=== PATIENT | male | born 1975 | race African-American/Black ===

== ENCOUNTER 2018-06-11 22:58 | Inpatient (IN) | payer OTHER ==
[2018-06-12 00:03] LABS: Hemoglobin 11.3 g/dL (14.0-18.0); Mean Corpuscular Hemoglobin 23.9 pg (27.0-31.0); Mean Corpuscular Volume 77.2 fL (78.0-98.0); RBC Distribution Width 18.3 % (11.5-14.5); Red Blood Cell (RBC) Count 4.74 mill/uL (4.70-6.10); White Blood Cell (WBC) Count 11.6 thou/uL (4.8-10.8)
[2018-06-12 00:18] LABS: #Lymphocytes 1.5 thou/uL (1.20-3.40); #Monocytes 0.7 thou/uL (0.11-0.59); #Neutrophils 9.3 thou/uL (1.40-6.50); %Basophils 0.1 % (0.0-1.0); %Eosinophils 0.4 % (0.0-10.0); %Monocytes 5.8 % (0.0-10.0); %Neutrophils 80.7 % (42.0-75.0); MDiff Complete? YES; Mean Platelet Volume 8.6 fL (7.4-10.4); Platelet Count 70 thou/uL (130-400); Platelet Morphology Comment Appears Decreased; Reflex for Review?? YES; Target Cells MARKED = >16 cells (100X) (0-1/hpf)
[2018-06-12] MEDS ORDERED: Acetaminophen 325 MG TAB PO PRN (01:49)
[2018-06-12] MEDS ORDERED: Ondansetron ODT 4 MG TAB PO PRN (01:49)
[2018-06-12 01:54] VITALS: BMI 29.2
[2018-06-12] MEDS: Dextrose 5 % And 0.9 % NaCl 1,000 ML IV SCH ×2 (02:06→10:54)
--- NOTE | 2018-06-12 05:34 | HP ---
PRIMARY CARE DOCTOR: The patient has no PCP. CODE STATUS: Full code. TIME OF EVALUATION: 01:10 a.m. CHIEF COMPLAINT: Black stools and coffee-ground emesis. HISTORY OF PRESENT ILLNESS: This is a 43-year-old male patient, past medical history of cirrhosis of the liver. He is an inmate, who came to the hospital from [facility] for evaluation of possible GI bleed and the patient reported that since Tuesday he has been noticing black stools and also had some coffee-ground emesis associated with some abdominal pain. No clear triggers, no alleviating factors. The patient reported that he has history of cirrhosis as he was very young, but he does not recall why he had this problem. REVIEW OF SYSTEMS: CONSTITUTIONAL: No fever or chills. The patient reported generalized weakness. RESPIRATORY: No cough, sputum production, or shortness of breath. CARDIOVASCULAR: No chest pain or palpitation. GASTROINTESTINAL: The patient has been nauseous and vomiting of coffee-ground emesis, black stools, abdominal cramps. FISHER LINE: No dizziness, headache, or feeling lightheaded. GENITOURINARY: No burning on urination. EXTREMITIES: No leg swelling. All other systems were reviewed and negative, except for the findings mentioned above. PAST MEDICAL HISTORY: Positive for hypertension, cirrhosis of the liver, cellulitis of the right leg. PAST SURGICAL HISTORY: Right ankle repair, jaw repair. PSYCH HISTORY: No previous psych history. SOCIAL HISTORY: No alcohol, no drugs, no smoking history. KNOWN ALLERGIES: No known drug allergies reported. MEDICATIONS: 1. Lasix. 2. Lisinopril. 3. Spironolactone. PHYSICAL EXAMINATION: VITAL SIGNS: On presentation, blood pressure 141/67, heart rate 100, respiratory rate was 16, temperature 98.5, oxygen saturation was 99 on room air. GENERAL APPEARANCE: The patient is alert, oriented, not in acute distress. HEENT: Eyes; normal conjunctivae. Moist oral mucosa. Anicteric. No JVD. RESPIRATORY: Bilateral air entry. No rales. No wheezes. Symmetric expansion. CARDIOVASCULAR: Normal rate, regular rhythm. No murmurs or gallops. No edema. ABDOMEN: Soft. Normal bowel sounds. MUSCULOSKELETAL: Baseline range of motion and strength. No tenderness. SKIN: Warm, intact. No pallor. No rash. No redness. Peripheral pulse are present. Capillary refill seems to be intact. NEURO: No evidence of any new focal weakness. Baseline speech. Cranial nerves seems to be intact. PSYCH: The patient is in good mood. No anxiety. Optimal judgment. LABORATORY DATA: Prior to the transfer, records were reviewed. The patient has a sodium of 127, potassium of 5.9, chloride 98, carbon dioxide 23, anion gap 11.9, glucose 145, BUN 34, creatinine 0.9, GFR 127. Albumin 2.4. LFTs mildly elevated. White count 8.2, hemoglobin 11.4, platelet count 67. IMAGING STUDIES: CT abdomen show changes of hepatic cirrhosis, intrahepatic biliary ductal dilatation is related to the left hepatic lobe, correlation with MRCP recommended. A 2.2 cm complex cystic mass involving the right hepatic lobe, infectious and neoplastic etiologies are possible. Mild free intraperitoneal fluid, nonspecific finding in the mediastinum with involvement in the pancreatic body. MRCP may also be useful in assessing this finding. ASSESSMENT AND PLAN: The patient will be placed in the hospital with following medical problems: 1. Possible gastrointestinal bleed. The patient has some black stools and some coffee-ground material in the vomitus. The patient has a history of cirrhosis. We will monitor hemoglobin, we will hydrate and transfuse as needed. We will consult GI for any further recommendation. 2. Possible pancreatic mass. The patient will need MRCP. Also consult GI for any further need for evaluations. 3. History of cirrhosis of the liver, could be related to possible GI bleeding. The patient also has thrombocytopenia, likely secondary to cirrhosis. GI has been consulted. We will follow recommendations. 4. Uncontrolled hypertension. The patient presented with systolic blood pressure more than 140. We will reconcile home medications, we will adjust medications as needed. We would not treat aggressively since the patient has possible bleeding. 5. Deep venous thrombosis prophylaxis. Job ID: [id number]
[2018-06-12 06:35] LABS: Hemoglobin 10.2 g/dL (14.0-18.0)
[2018-06-12 06:52] LABS: Anion Gap 11 mmol/L (10-20); BUN (Urea Nitrogen) 30 mg/dL (8.9-20.6); Calc. Creatinine Clearance 147 mL/min (70-130); Calcium 8.4 mg/dL (7.8-10.44); Carbon Dioxide 21 mmol/L (22-29); Chloride 103 mmol/L (98-107); Estimated GFR-MDRD Greater than 90; Glucose 119 mg/dL (70-105); Potassium 4.9 mmol/L (3.5-5.1); Sodium 130 mmol/L (136-145)
[2018-06-12] MEDS ORDERED: Senokot S 8.6-50 MG TAB PO PRN (10:00)
[2018-06-12] MEDS ORDERED: Bisacodyl 10 MG SUPP PR PRN (10:00)
[2018-06-12] MEDS ORDERED: Pantoprazole 40 MG VIAL IVP SCH (10:15)
[2018-06-12 12:14] LABS: Hemoglobin 10.1 g/dL (14.0-18.0)
--- NOTE | 2018-06-12 12:51 | MRI ---
MRI ABDOMEN WITH AND WITHOUT CONTRAST: HISTORY: Pancreatic mass. COMPARISON: None. TECHNIQUE: Multiplanar, multisequence MRI performed prior to and after the intravenous administration of contras t. FINDINGS: The liver is severely cirrhotic. There is severe background cirrhosis with extensive regenerative no dules. No focal area of mass-like arterial hyperenhancement to suggest malignancy. There is moderat e unilateral left-sided intrahepatic biliary dilatation. The examination was not performed as an MRC P, although the right hepatic duct and the common bile duct do not appear to be dilated. The left-si ded intrahepatic biliary system is normal to the level of the left portal vein. Pancreatic duct is not dilated. There are 2 T2 hyperintense foci without enhancement in the pancreas , 1 of the pancreatic head and 2 in the uncinate process for a total of 3. In the head it measures a pproximately 5 mm. In the uncinate process, they measure 4 mm and 4 mm. There is beading of the lef t side intrahepatic biliary system. There is also cystic dilatation of hepatic segment 4A biliary sy stem. There is extensive submucosal edema of the gallbladder. The wall thickness measures over 8 mm. Ther e is enhancing mass along the craniad gallbladder wall best seen on the coronal postcontrast imaging #31. This measures up to 6 mm in size. The spleen is enlarged measuring 14 cm with a nonenhancing p eripheral cleft in the mid body. Small periaortic left-sided lymph nodes. No hydronephrosis. No ab normal enhancing renal mass. Small right-sided pericardial lymph node. The splenic vein is patent as well as the portal vein. Th ere is no abnormal hyper or hypoenhancing solid mass of the pancreas. IMPRESSION: 1. Total of 3 pancreatic cysts measuring than 5 mm. No solid enhancing mass. Per ACR white paper g uidelines, followup pancreatic protocol MRI in 1 year is recommended. 2. Severe hepatic cirrhosis with extensive fibrosis and numerous regenerative nodules. No evidence for a hepatocellular carcinoma. 3. Focal dilatation of the left intrahepatic biliary system at the level of the left portal vein and peripherally. There is cystic dilatation of hepatic segment 4A biliary system. The right hepatic du ct, common hepatic duct, and common bile duct are not dilated. No abnormal mass such as a cholangioc arcinoma is appreciated. This could be sequelae of a stricture. Attention on followup imaging is re commended. 4. A 6 mm enhancing mass along the craniad wall of the gallbladder measuring 6 mm. This may be a ga llbladder polyp and close attenuation on followup imaging is recommended. 5. Extensive submucosal edema of the gallbladder, likely sequelae of underlying hepatic congestion. No abnormal hyperenhancement to suggest acute cholecystitis. 6. No adenopathy. 7. Splenomegaly with a peripheral wedge-shaped area of hypoenhancement, likely an old scar from infa rction. 8. T2 markedly hyperintense focus within the body of the left adrenal gland measuring 8 mm without a ny enhancement suggesting adrenal cyst. 9. Given the severe background hepatic cirrhosis, the patient should be placed in an HCC screening p cinda. POS: [facility]
--- NOTE | 2018-06-12 13:56 | PDOC.PN ---
- Subjective Encounter Start Date: 06/12/18 Encounter Start Time: 10:00 Patient seen and examined for UGI bleeding. No new GI bleeding. No abd pain. Had one episode of dark stool last night. No new complaints. No overnight events - Objective Resuscitation Status - Order Detail: 06/12/18 01:49 Resuscitation Status Routine Resuscitation Status: FULL: Full Resuscitation MAR Reviewed: Yes Vital Signs & Weight: Vital Signs (12 hours) Temp Pulse Resp BP Pulse Ox 06/12/18 10:51 98 F 83 16 159/94 H 100 06/12/18 08:08 97.9 F 110 H 18 116/68 100 06/12/18 07:55 97.9 F 116/68 100 06/12/18 04:20 98.1 F 95 20 123/74 100 Weight Weight 198 lb I&O: 06/11/18 06/12/18 06/13/18 06:59 06:59 06:59 Intake Total 600 Output Total 450 Balance 150 Result Diagrams: 06/12/18 12:00 06/12/18 06:08 Phys Exam - Physical Examination Constitutional: NAD Respiratory: no wheezing, no rhonchi Cardiovascular: RRR, no significant murmur, no rub no heaves Gastrointestinal: soft, non-tender, no distention, positive bowel sounds Musculoskeletal: no edema Neurological: non-focal, normal sensation, moves all 4 limbs Psychiatric: normal affect, A&O x 3 Dx/Plan (1) UGIB (upper gastrointestinal bleed) Code(s): K92.2 - GASTROINTESTINAL HEMORRHAGE, UNSPECIFIED Status: Acute (2) Acute blood loss anemia Code(s): D62 - ACUTE POSTHEMORRHAGIC ANEMIA Status: Acute (3) Abnormal CT of the abdomen Code(s): R93.5 - ABN FINDINGS ON DX IMAGING OF ABD REGIONS, INC RETROPERITON Status: Acute (4) Hyperkalemia Code(s): E87.5 - HYPERKALEMIA Status: Acute (5) Cirrhosis of liver Code(s): K74.60 - UNSPECIFIED CIRRHOSIS OF LIVER Status: Chronic Comment: with coagulopathy and thrombocytopenia (6) HTN (hypertension) Code(s): I10 - ESSENTIAL (PRIMARY) HYPERTENSION Status: Chronic - Plan cont current plan of care, out of bed/ambulate, DVT proph w/SCDs Monitor HH -: NPO for possible EGD -: MRI results pending -: AM labs -: Add PPI, Cont current meds as below Review of Systems - Review of Systems Respiratory: negative: Cough, Dry, Shortness of Breath, Hemoptysis, SOB with Excertion, Pleuritic Pain, Sputum, Wheezing Cardiovascular: negative: chest pain, palpitations, orthopnea, paroxysmal nocturnal dyspnea, edema, light headedness, other Gastrointestinal: Melena (1 episode). negative: Nausea, Vomiting, Abdominal Pain, Diarrhea, Constipation, Hematochezia, Other - Medications/Allergies Allergies/Adverse Reactions: Allergies Allergy/AdvReac Type Severity Reaction Status Date / Time No Known Drug Allergies Allergy Verified 06/12/18 07:31 Medications: Current Medications Acetaminophen (Tylenol) 650 mg PO Q4H PRN PRN Reason: Headache/Fever/Mild Pain (1-3) Bisacodyl (Dulcolax) 10 mg ND DAILYPRN PRN PRN Reason: Constipation Ondansetron HCl (Zofran Odt) 4 mg PO Q6H PRN PRN Reason: Nausea/Vomiting Pantoprazole Sodium (Protonix) 40 mg IVP Q12HR DAVID Senna/Docusate Sodium (Senokot S) 2 tab PO BID PRN PRN Reason: Constipation Sodium Chloride (Flush - Normal Saline) 10 ml IVF PRN PRN PRN Reason: Saline Flush
[2018-06-12] MEDS ORDERED: Labetalol HCl 100 MG/20 ML VIAL SLOW IVP PRN (14:44)
[2018-06-12] MEDS: Propranolol 10 MG TAB PO SCH ×2 (14:49→21:22)
[2018-06-12 18:11] LABS: Hemoglobin 9.6 g/dL (14.0-18.0)
[2018-06-12] MEDS: Pantoprazole 40 MG VIAL IVP SCH (21:21)
--- NOTE | 2018-06-13 00:08 | CON ---
DATE OF CONSULTATION: 06/12/2018 REQUESTING PHYSICIAN: Dr. Byrd. REASON FOR CONSULTATION: GI bleeding. HISTORY OF PRESENT ILLNESS: Darshan Haines is a 43-year-old gentleman, an inmate at [facility], who was transferred here from [facility] last night for GI bleeding. Mr. Haines interestingly tells me that he was diagnosed with cirrhosis at the early age of 17. He said he had a liver biopsy at that time, but that he never really learned what the cause of the cirrhosis was and he never really had any liver followup since that time. Now, over the past few months while incarcerated, he has actually been undergoing extensive evaluation at [facility] at [facility] for his liver disease. He states he did not have another liver biopsy, but he has had extensive imaging and lab work and that he is still not exactly clear as to what has caused his cirrhosis, but that they said everything is stable. He is on some diuretics as an outpatient. He says he has not ever had a prior EGD, but this was planned for some point in the future. He never had any history of overt ascites or encephalopathy or gastrointestinal bleeding. Two days ago in the evening, he had a bowel movement, noticed that it was very dark black. This was just a single episode of what appeared to be melena. Later that evening, he had an episode of emesis. He says this was mostly recently ingested food, but then there was some reddish brown material which was concerning for blood. Then, this continued yesterday, where he had three episodes total of coffee-ground emesis. He started to feel dizzy and lightheaded and that prompted his presentation. At [facility], labs demonstrated hemoglobin 11.4 and total bilirubin 5.3 with some mild elevation in transaminases and INR 1.6. He remained hemodynamically stable throughout. He was transferred here for further evaluation. He was put on IV Protonix and made n.p.o. today. Today, he is feeling a lot better. He has not had any bowel movements today. He has not had any nausea or vomiting today. There is no abdominal discomfort like he was having the past couple of days. He really feels back to normal. He has remained hemodynamically stable. Hemoglobin did decline down to 10.1 this morning. REVIEW OF SYSTEMS: Full review of systems including constitutional, head, eyes, ears, nose, throat, GI, , cardiovascular, respiratory, musculoskeletal, neurologic systems is negative except as noted in the HPI. PAST MEDICAL HISTORY: 1. Hypertension. 2. Cellulitis. 3. Cirrhosis, unknown etiology, diagnosed at age 17. SOCIAL HISTORY: The patient is currently an inmate. Alcohol use was just on a social basis prior to his incarceration. Denies drug use. FAMILY HISTORY: Noncontributory. ALLERGIES: NO KNOWN DRUG ALLERGIES. OUTPATIENT MEDICATIONS: Lasix, spironolactone, lisinopril. PHYSICAL EXAMINATION: VITAL SIGNS: Temperature 98.0, pulse 83, blood pressure 159/94, 100% oxygen saturation on room air. GENERAL: Well-appearing 43-year-old gentleman, sitting up in bed comfortably, in no distress. SKIN: No jaundice. No rashes were palpable. He does have multiple tattoos. HEENT: Eyes; he does have some scleral icterus. Extraocular movements intact. ENT, mucous membranes moist. No oral lesions. LYMPH: No submandibular supraclavicular lymphadenopathy. THYROID: Nontender to palpation. HEART: Regular rate and rhythm. LUNGS: Clear to auscultation bilaterally. ABDOMEN: Nondistended. Bowel sounds present. Soft, nontender to palpation throughout. EXTREMITIES: No peripheral edema. VESSELS: Radial pulses 2+ bilaterally. NEUROLOGIC: Cranial nerves 2 through 12 intact bilaterally. No focal deficits. No asterixis. LABORATORY STUDIES: Hemoglobin initially 11.3, now down to 10.1, MCV is 77, WBC 11.6, platelets 70. BUN 30, creatinine 0.84, sodium 130, potassium 4.9, INR 1.6, total bilirubin 5.3, alkaline phosphatase 127, AST 79, ALT 136, albumin 2.4. IMAGING STUDIES: CT of the abdomen and pelvis performed in [facility] demonstrated cirrhotic liver configuration, intrahepatic biliary dilation, isolated to the left hepatic lobe with a 3.2 cm complex cystic mass in the left hepatic lobe with no apparent ductal dilation on the right side or involving the common duct. MRI of the abdomen performed here shows again severe hepatic cirrhosis with fibrosis and numerous regenerative nodules, but no evidence for hepatocellular carcinoma. There is focal dilation of the left intrahepatic biliary system and cystic dilation of hepatic segment 4A, but the right hepatic duct, common hepatic duct, and common bile duct are not dilated and there is no abnormal mass to suggest cholangiocarcinoma. There is a 6 mm probable gallbladder polyp, but no abnormal hyperenhancement to suggest cholecystitis. There is splenomegaly and there are three small pancreatic cysts, all measuring 5 mm or less. No solid enhancing mass. ASSESSMENT AND PLAN: 1. Hematemesis, resolved today. 2. Acute blood loss anemia. Clinically, the patient is stable with no further overt evidence of bleeding today. I do note he did have some decline in hemoglobin down to 10.1 and also elevated BUN to creatinine ratio with BUN 30 and creatinine 0.84. Clinically, this does not appear to represent variceal bleeding, but certainly further investigation is warranted, particularly with his history of long-standing cirrhosis. I agree with the IV PPI for now. We will plan on diagnostic upper endoscopy tomorrow. Depending on findings, the patient may benefit from acid suppression or a nonselective beta anderson going forward. 3. Abnormal CT of the liver with left biliary dilation. 4. Multiple pancreatic cysts, likely benign. The etiology of his cirrhosis is not really clear. However, it certainly appears otherwise well compensated aside from the thrombocytopenia and the bilirubin elevation of 5.3. I am not sure how chronic that is. At any rate, he is following at [facility] with butcher or smallgoods maker there, and reports he has had extensive recent evaluation. I do not really see the need to repeat a lot of that evaluation here acutely. Certainly, he will need to follow up closely with his butcher or smallgoods maker at [facility]. Given the findings of multiple benign-appearing pancreatic cysts as well as left-sided biliary dilation, perhaps endoscopic ultrasound could be considered when he follows up on an outpatient basis. Job ID: [id number]
[2018-06-13 00:44] LABS: Hemoglobin 8.6 g/dL (14.0-18.0)
[2018-06-13 06:56] LABS: ALT (SGPT) 61 U/L (8-55); AST (SGOT) 96 U/L (5-34); Alkaline Phosphatase 105 U/L (40-150); Anion Gap 8 mmol/L (10-20); BUN (Urea Nitrogen) 23 mg/dL (8.9-20.6); Bilirubin, Total 4.3 mg/dL (0.2-1.2); Calc. Creatinine Clearance 156 mL/min (70-130); Calcium 7.9 mg/dL (7.8-10.44); Carbon Dioxide 23 mmol/L (22-29); Chloride 104 mmol/L (98-107); Estimated GFR-MDRD Greater than 90; Globulin 3.9 g/dL (2.4-3.5); Glucose 86 mg/dL (70-105); Magnesium 1.5 mg/dL (1.6-2.6); Potassium 4.8 mmol/L (3.5-5.1); Protein, Total 5.9 g/dL (6.0-8.3); Sodium 130 mmol/L (136-145)
[2018-06-13] MEDS ORDERED: Magnesium 2 GM/50 ML 2 GM in Premix Bag 1 BAG IVPB SCH (07:45)
[2018-06-13] MEDS: Pantoprazole 40 MG VIAL IVP SCH ×2 (08:12→20:39)
[2018-06-13] MEDS: Propranolol 10 MG TAB PO SCH ×3 (08:12→20:38)
[2018-06-13 08:37] LABS: Band 1 % (5-11); Hemoglobin 8.9 g/dL (14.0-18.0); Hypochromia SLIGHT = 6-15 cells (100X) (0-5/hpf); Lymphocytes 22 % (21-51); MDiff Complete? YES; Mean Corpuscular Hemoglobin 25.2 pg (27.0-31.0); Mean Corpuscular Volume 81.3 fL (78.0-98.0); Mean Platelet Volume 7.5 fL (7.4-10.4); Monocytes 7 % (0-10); Myelocyte 1 % (0-0); Neutrophil 69 % (42-75); Ovalocytes SLIGHT = 2-5 cells (100X) (0-1/hpf); Platelet Count 53 thou/uL (130-400); Platelet Morphology Comment Appears Decreased; RBC Distribution Width 17.6 % (11.5-14.5); Red Blood Cell (RBC) Count 3.52 mill/uL (4.70-6.10); Target Cells MODERATE= 6-15 cells (100X) (0-1/hpf); White Blood Cell (WBC) Count 8.5 thou/uL (4.8-10.8)
[2018-06-13] MEDS ORDERED: Ondansetron HCl/PF 4 MG/2 ML Vial IVP PRN (11:42)
[2018-06-13] MEDS ORDERED: Promethazine HCl 25 MG/ML VIAL IM PRN (11:42)
[2018-06-13] MEDS ORDERED: Promethazine HCl 25 MG/ML VIAL SLOW IVP PRN (11:42)
--- NOTE | 2018-06-13 16:04 | OP ---
DATE OF PROCEDURE: 06/13/2018 PROCEDURES PERFORMED: Esophagogastroduodenoscopy with banding of esophageal varices. PREOPERATIVE DIAGNOSES: Hematemesis and anemia of acute blood loss. DESCRIPTION OF PROCEDURE: Informed consent was obtained from the patient. He was sedated with total intravenous anesthesia. The endoscope was advanced easily to the second portion of the duodenum and retroflexion was performed in the stomach. The esophagus had 3 columns of varices. One large grade 3 varix with red signs. This was banded in the distal esophagus. There were 2 columns small grade 1 varices, that flattened completely after banding and did not appear otherwise bandable with this procedure. He did have severe portal hypertensive gastropathy throughout the stomach. No obvious gastric varices. The pylorus and first and second portions of the duodenum were normal. IMPRESSION: 1. One column large grade 3 varix with red signs banded x1. 2. Two columns small grade 1 varices that flattened completely and were left alone. 3. Severe portal hypertensive gastropathy. RECOMMENDATIONS: 1. Advance diet. 2. Repeat EGD in 2 to 4 weeks for completion of banding. He follows with Gastroenterology/Hepatology in [place]. Job ID: [id number]
[2018-06-13] MEDS ORDERED: Lidocaine 1% PF 5 ML VIAL ONE (16:21)
[2018-06-13] MEDS ORDERED: PROPOFOL 200 MG/20 ML VIAL ONE (16:21)
--- NOTE | 2018-06-13 19:09 | PDOC.PN ---
- Subjective Encounter Start Date: 06/13/18 Encounter Start Time: 12:30 Patient seen and examined for UGI bleed. No new melena or hematemesis. No new complaints. No overnight events - Objective Resuscitation Status - Order Detail: 06/12/18 01:49 Resuscitation Status Routine Resuscitation Status: FULL: Full Resuscitation MAR Reviewed: Yes Vital Signs & Weight: Vital Signs (12 hours) Temp Pulse Resp BP BP BP Pulse Ox 06/13/18 15:50 98.2 F 71 16 115/70 100 06/13/18 12:20 98.0 F 68 16 119/75 99 06/13/18 08:00 97.8 F 62 18 106/66 100 Weight Weight 198 lb I&O: 06/12/18 06/13/18 06/14/18 06:59 06:59 06:59 Intake Total 600 3020 800 Output Total 450 1100 400 Balance 150 1920 400 Result Diagrams: 06/13/18 05:45 06/13/18 05:45 Phys Exam - Physical Examination Constitutional: NAD Respiratory: no wheezing, no rhonchi Cardiovascular: RRR, no rub Gastrointestinal: soft, non-tender, positive bowel sounds Musculoskeletal: no edema Neurological: moves all 4 limbs Dx/Plan (1) UGIB (upper gastrointestinal bleed) Code(s): K92.2 - GASTROINTESTINAL HEMORRHAGE, UNSPECIFIED Status: Acute (2) Acute blood loss anemia Code(s): D62 - ACUTE POSTHEMORRHAGIC ANEMIA Status: Acute (3) Hyperkalemia Code(s): E87.5 - HYPERKALEMIA Status: Acute (4) Cirrhosis of liver Code(s): K74.60 - UNSPECIFIED CIRRHOSIS OF LIVER Status: Chronic Comment: with coagulopathy, hypoalbuminemia and thrombocytopenia (5) HTN (hypertension) Code(s): I10 - ESSENTIAL (PRIMARY) HYPERTENSION Status: Chronic (6) Hypomagnesemia Code(s): E83.42 - HYPOMAGNESEMIA Status: Acute - Plan cont current plan of care, DVT proph w/SCDs Replace Potassium -: AM labs -: s/p Variceal banding -: Cont Inderal -: Resume Lasix and Aldactone at dc Review of Systems - Review of Systems Respiratory: negative: Cough, Dry, Shortness of Breath, Hemoptysis, SOB with Excertion, Pleuritic Pain, Sputum, Wheezing Cardiovascular: negative: chest pain, palpitations, orthopnea, paroxysmal nocturnal dyspnea, edema, light headedness, other - Medications/Allergies Allergies/Adverse Reactions: Allergies Allergy/AdvReac Type Severity Reaction Status Date / Time No Known Drug Allergies Allergy Verified 06/12/18 07:31 Medications: Current Medications Acetaminophen (Tylenol) 650 mg PO Q4H PRN PRN Reason: Headache/Fever/Mild Pain (1-3) Bisacodyl (Dulcolax) 10 mg MN DAILYPRN PRN PRN Reason: Constipation Labetalol HCl (Normodyne) 10 mg SLOW IVP Q4H PRN PRN Reason: Systolic BP > 180 Ondansetron HCl (Zofran Odt) 4 mg PO Q6H PRN PRN Reason: Nausea/Vomiting Pantoprazole Sodium (Protonix) 40 mg IVP Q12HR [facility] Last Admin: 06/13/18 08:12 Dose: 40 mg Propranolol HCl (Inderal) 10 mg PO TID [facility] Last Admin: 06/13/18 14:31 Dose: 10 mg Senna/Docusate Sodium (Senokot S) 2 tab PO BID PRN PRN Reason: Constipation Sodium Chloride (Flush - Normal Saline) 10 ml IVF PRN PRN PRN Reason: Saline Flush
[2018-06-14] MEDS: Propranolol 10 MG TAB PO SCH (08:04)
[2018-06-14] MEDS: Pantoprazole 40 MG VIAL IVP SCH (08:04)
[2018-06-14 08:21] LABS: Hemoglobin 8.6 g/dL (14.0-18.0); Mean Corpuscular HGB CONC 31.2 g/dL (32.0-36.0); Mean Corpuscular Hemoglobin 25.2 pg (27.0-31.0); Mean Corpuscular Volume 80.6 fL (78.0-98.0); RBC Distribution Width 17.7 % (11.5-14.5); Red Blood Cell (RBC) Count 3.42 mill/uL (4.70-6.10); White Blood Cell (WBC) Count 6.2 thou/uL (4.8-10.8)
[2018-06-14 08:36] LABS: Anion Gap 10 mmol/L (10-20); BUN (Urea Nitrogen) 17 mg/dL (8.9-20.6); Calc. Creatinine Clearance 154 mL/min (70-130); Calcium 7.8 mg/dL (7.8-10.44); Carbon Dioxide 23 mmol/L (22-29); Chloride 105 mmol/L (98-107); Estimated GFR-MDRD Greater than 90; Glucose 94 mg/dL (70-105); Magnesium 1.6 mg/dL (1.6-2.6); Potassium 4.6 mmol/L (3.5-5.1); Sodium 133 mmol/L (136-145)
[2018-06-14 08:43] LABS: #Basophils 0.1 thou/uL (0.0-0.2); #Eosinphils 0.2 thou/uL (0.0-0.7); #Lymphocytes 1.8 thou/uL (1.20-3.40); #Monocytes 0.7 thou/uL (0.11-0.59); #Neutrophils 3.4 thou/uL (1.40-6.50); %Basophils 1.3 % (0.0-1.0); %Lymphocytes 29.3 % (21.0-51.0); %Monocytes 11.2 % (0.0-10.0); %Neutrophils 54.2 % (42.0-75.0); Mean Platelet Volume 12.4 fL (7.4-10.4); Platelet Count 50 thou/uL (130-400)
[2018-06-14 08:44] LABS: Hypochromia SLIGHT = 6-15 cells (100X) (0-5/hpf); MDiff Complete? YES; Platelet Morphology Comment Appears Decreased; Polychromasia MODERATE = 3-4 cells (100X) (0-2/hpf); Schistocytes SLIGHT = 2-5 cells (100X) (0-1/hpf); Target Cells MARKED = >16 cells (100X) (0-1/hpf)
[2018-06-14 12:34] VITALS: BP 106/66; TEMP 97.8
--- NOTE | 2018-06-14 19:35 | DIS ---
DATE OF ADMISSION: 06/11/2018 DATE OF DISCHARGE: 06/14/2018 DISCHARGE DISPOSITION: The patient is an inmate. ALLERGIES: NO KNOWN DRUG ALLERGIES. DISCHARGE MEDICATIONS: 1. Lasix 40 mg b.i.d. 2. Aldactone 25 mg b.i.d. 3. Propranolol 10 mg three times a day. 4. Multivitamin one tablet daily. 5. Protonix 40 mg daily. The patient was seen and examined on the day of discharge. Denies any new complaints. No chest pain, shortness of breath, or palpitations reported. FOLLOWUP: Follow up with primary gastroenterology/dough cutter at [facility]. DIAGNOSTIC TESTS: The patient underwent most of the testing at [facility]. He underwent MRCP at this facility that showed total of three pancreatic cyst measuring approximately 5 mm without any solid enhancing mass. There was severe hepatic cirrhosis with extensive fibrosis without any evidence of hepatocellular carcinoma. There was focal dilatation of the left intrahepatic biliary system at the level of the left portal vein and peripherally. There was also cystic dilatation of the hepatic segment 4A biliary system. There was splenomegaly. BRIEF HOSPITAL COURSE: The patient is a 43-year-old male with cirrhosis, presented to the hospital with black stool and coffee-grounds emesis. He initially presented to [facility] and was transferred to this facility. CT scan of the abdomen at [facility] showed intrahepatic biliary ductal dilatation with complex cystic mass. MRCP was recommended, which was done at this facility as discussed above. SIGNIFICANT LABS: Potassium 5.9 with sodium of 127 at [facility], BUN 34, creatinine 0.9, albumin 2.4, hemoglobin 11.4 at [facility]. Hemoglobin on the day of discharge was 8.6. BRIEF HOSPITAL COURSE: The patient is a 43-year-old male with cirrhosis of the liver, presented to [facility] with black stool and coffee-grounds emesis. Please refer to the history and physical for further details. The patient was admitted to the hospital with a diagnosis of upper GI bleeding. He was started on IV Protonix. His H and H were closely monitored. He underwent EGD with banding of grade 3 esophageal varix. He will need a repeat EGD in 2 to 4 weeks for completion of banding per Gastroenterology. He was advised to follow up with Gastroenterology/hepatology at [place]. Due to significant hyperkalemia with potassium 5.9 on admission, lisinopril has been discontinued. He will need a repeat basic metabolic profile after 1 week. Protonix has been changed to oral. He has been cleared by Gastroenterology for discharge. FINAL DIAGNOSES: 1. Upper GI bleeding secondary to esophageal viruses, status post banding. 2. Acute blood loss anemia. 3. Hyperkalemia. 4. Cirrhosis of the liver with coagulopathy, hypoalbuminemia, and thrombocytopenia. 5. Hypertension. 6. Hypomagnesemia. 7. Hyponatremia. PLAN: Plan of care was discussed with the patient in detail. He stated understanding. Job ID: [id number]
== END 2018-06-14 13:24 | DRG 432 ==
LOC: EEVIPCON 22:58 → ERS 22:58 → SURG B 23:56
PROVIDERS: ADMIT Hospitalist; ATTEND Hospitalist
PROC: 06L34CZ Occlusion of Esophageal Vein with Extraluminal Device, Percutaneous Endoscopic Approach (ICD-10-PCS; principal; 2018-06-13)
DX: K74.60 Unspecified cirrhosis of liver (principal); I85.11 Secondary esophageal varices with bleeding; D62 Acute posthemorrhagic anemia; K76.6 Portal hypertension; E87.1 Hypo-osmolality and hyponatremia; K86.2 Cyst of pancreas; I10 Essential (primary) hypertension; D69.6 Thrombocytopenia, unspecified; E87.5 Hyperkalemia; E88.09 Other disorders of plasma-protein metabolism, not elsewhere classified; E83.42 Hypomagnesemia; Z86.19 Personal history of other infectious and parasitic diseases; Z79.899 Other long term (current) drug therapy
CPT/HCPCS: 36415; 74183; 80048; 80053; 83735; 85018; 85025; 85060; 86850; 86900; 86901; 99285; C9113; J2001; J2704